=== PATIENT | male | born 1975 | race Caucasian/White ===

== ENCOUNTER 2019-04-01 10:35 | Day surgery (SDC) | payer OTHER ==
[2019-04-01 11:11] VITALS: BMI 26.6
[2019-04-01 11:54] VITALS: TEMP 98.6
[2019-04-01 13:00] VITALS: BP 148/92; PULSE 78
--- NOTE | 2019-04-04 10:49 | PATH ---
Surgical Pathology Report Patient Name: FRANDY MESA [facility]. Rec. #: [id number] /Age/Gender: 1975 (Age: 44) / M Account: [id number] Location: U-ENDOSCOPY Taken: 04/01/2019 Received: 04/01/2019 Reported: 04/04/2019 Physicians: Jaime Millan M.D. Specimen(s) Received A: BX DUODENUM R/O CELIAC DISEASE B: BX ESOPHAGUS R/O BILLIE C: BX MID ASCENDING COLON CANCER Clinical History Anemia Postoperative diagnosis: Billie esophagitis, mid ascending colon cancer Final Diagnosis A. DUODENUM, BIOPSY: DUODENAL MUCOSA WITH NO PATHOLOGIC FINDINGS. B. ESOPHAGUS, BIOPSY: ESOPHAGEAL (SQUAMOUS) MUCOSA SHOWING SEVERE ACUTE ESOPHAGITIS. PAS STAIN SHOWS NUMEROUS FUNGAL ORGANISMS, CONSISTENT WITH BILLIE SPECIES. NO COLUMNAR EPITHELIUM/INTESTINAL METAPLASIA IS IDENTIFIED. C. MID ASCENDING COLON, BIOPSY: ADENOCARCINOMA, MODERATELY DIFFERENTIATED. (SEE COMMENT) Comment: Case reviewed in intradepartmental consultation with consensus on diagnosis. Case discussed with Dr. Millan on 04/04/19. Microsatellite Instability (MSI) studies are being performed and the results will be reported separately in an addendum. Electronically Signed Sharee Dean M.D. Addendum Reported: 04/04/2019 Addendum Diagnosis Immunohistochemistry (IHC) Testing for Mismatch Repair (MMR) Proteins: _X_ MLH1 _X_ Intactnuclear expression _X_ MSH2 _X_ Intact nuclear expression _X_ MSH6 _X_ Intact nuclear expression _X_ PMS2 _X_ Intact nuclear expression _X_ Background nonneoplastic tissue/internal control with intact nuclear expression IHC Interpretation _X_ No loss of nuclear expression of MMR proteins: low probability of microsatellite instability-high(MSI-H) (see note) Note: There are exceptions to the above IHC interpretations. These results should not be considered in isolation, and clinical correlation with genetic counseling is recommended to assess the need for germline testing. Sharee Dean M.D. Addendum Reported: 04/04/2019 Addendum Diagnosis MSI immunohistochemistry studies were performed at [place], [place] ([id number]) and interpreted at [facility]. Sharee Dean M.D. Gross Description A. Received in formalin, labeled "biopsy duodenum" are 6 coello, irregular portions of soft tissue ranging from 0.2-0.4 cm. in greatest dimension. The specimens are submitted in toto in one cassette. B. Received in formalin, labeled "biopsy esophagus" are 4 coello, irregular portions of soft tissue ranging from 0.1-0.3 cm. in greatest dimension. The specimens are submitted in toto in one cassette. C. Received in formalin, labeled "biopsy mid ascending" are 7 coello, irregular portions of soft tissue ranging from 0.2-0.4 cm. in greatest dimension. The specimens are submitted in toto in one cassette. 04/01/2019 [facility]04/01/2019
== END 2019-04-01 12:58 | disposition home or self-care (01) ==
LOC: JASU-ENDO 10:35
PROVIDERS: ATTEND Internal Medicine Gastroenterology
PROC: 0DB28ZX Excision of Middle Esophagus, Via Natural or Artificial Opening Endoscopic, Diagnostic (ICD-10-PCS; 2019-04-01)
PROC: 0DBF8ZX Excision of Right Large Intestine, Via Natural or Artificial Opening Endoscopic, Diagnostic (ICD-10-PCS; 2019-04-01)
PROC: 3E0H8GC Introduction of Other Therapeutic Substance into Lower GI, Via Natural or Artificial Opening Endoscopic (ICD-10-PCS; 2019-04-01)
PROC: 0DB98ZX Excision of Duodenum, Via Natural or Artificial Opening Endoscopic, Diagnostic (ICD-10-PCS; principal; 2019-04-01 11:15)
DX: C18.2 Malignant neoplasm of ascending colon (principal); D50.9 Iron deficiency anemia, unspecified; B37.81 Candidal esophagitis; K44.9 Diaphragmatic hernia without obstruction or gangrene
CPT/HCPCS: 88305-TC; 88312-TC